=== PATIENT | male | born 1990 | race Two or more races ===

== ENCOUNTER 2017-07-28 06:55 | Inpatient (IN) | payer OTHER ==
[2017-07-28] VITALS (17 sets, daily range): BP systolic 121–156; BP diastolic 77–102
[~2017-07-28] VITALS: Ht 170.2 cm; Wt 72.6 kg
[~2017-07-28 06:55] MED LIST: Acetaminophen (Non formulary) 100 ML IV ONE; Atropine Inj 1mg/10ml Syr IV PRN; DiphenhydrAMINE 50mg/ml Inj IVP PRN; HYDROcodone/Acetamin 7.5/325 tab ORAL PRN; Hydromorphone 0.5mg/0.5ml inj IVP PRN; Ketorolac 30mg Inj IV PRN; Ketorolac 60mg Inj IV PRN; LORazepam Inj 2mg/ml 1ml IV PRN; LR 1000ml 1,000 ML IVLG SCH; Labetalol 5mg/ml 20ml vial IV PRN; Midazolam 2mg/2ml Inj IVP PRN; Norco 5mg/325mg tab ORAL PRN; fentaNYL 100 mcg/2 mL IV PRN; oxyCODONE HCL/Acetaminophen 5/325mg ORAL PRN
[2017-07-28] MEDS ORDERED: Thrombin 5000 units TOPIC ONE (06:58)
[2017-07-28] MEDS ORDERED: Vancomycin 1gm inj IVPB ONE (06:58)
[2017-07-28] MEDS ORDERED: Lidocaine 1% Plain 30 ml INJ ONE ×2 (06:58→08:30)
[2017-07-28] MEDS ORDERED: Bupivacaine 0.5% Inj 30 ml vial INJ ONE (06:59)
[2017-07-28] MEDS ORDERED: Bacitracin 50000 Units Vial ONE (06:59)
[2017-07-28] MEDS ORDERED: Dexamethasone 20mg/5ml IVP ONE (07:00)
[2017-07-28] MEDS ORDERED: Heparin 5000 units/ml inj ONE (07:00)
[2017-07-28] MEDS ORDERED: ceFAZolin sod 1 GM in D5W 55 ML IVPB ONE (07:00)
[2017-07-28] MEDS ORDERED: Dexamethasone 20mg/5ml ONE (07:28)
[2017-07-28] MEDS ORDERED: Surgicel 4in x 8in TOPIC ONE (07:40)
[2017-07-28] MEDS ORDERED: Lidocaine 1% 10mg/ml/EPI 0.01mg/ml 50ml INJ ONE (07:41)
[2017-07-28] MEDS ORDERED: Ropivacaine 5mg/ml Vial 30ml INJ ONE (07:41)
[2017-07-28] MEDS ORDERED: MULTIVITAMINS1 EA14 PO (07:43)
[2017-07-28] MEDS ORDERED: Glycopyrrolate 0.2mg/ml 1ml Vial ONE (08:30)
[2017-07-28] MEDS ORDERED: fentaNYL 100 mcg/2 mL IV ONE (08:30)
[2017-07-28] MEDS ORDERED: Propofol 1,000mg/ 100ml btl IV ONE (08:30)
[2017-07-28] MEDS ORDERED: NS Irrig 1000ml ONE (08:30)
[2017-07-28] MEDS ORDERED: Sodium Chloride 10ml vial INJ ONE (08:30)
[2017-07-28] MEDS ORDERED: Sterile Water Irrig 1000ml IRRIG ONE (08:30)
[2017-07-28] MEDS ORDERED: Lidocaine 1% MPF 10mg/ml 5ml ONE (08:30)
[2017-07-28] MEDS ORDERED: Neostigmine 1mg/ml 10ml Inj ONE (08:30)
[2017-07-28] MEDS ORDERED: LR 1000ml ONE (08:30)
[2017-07-28] MEDS ORDERED: Ketamine 500mg Inj ONE (08:30)
[2017-07-28] MEDS ORDERED: Zemuron 50mg/5ml Inj IV ONE (08:30)
--- NOTE | 2017-07-28 08:35 | Pre-Procedure Note/Attestation ---
Pre-Procedure Note/Attestation Complete Prior to Procedure Planned Procedure: not applicable Procedure Narrative: ALIF L5-S1 Posterior Pedicle Screw L5-S1 Indications for Procedure Pre-Operative Diagnosis: Psotrauma symptomatic L5 spondylolysis, L5-S1 spondylolisthesis Attestation I attest that I discussed the nature of the procedure; its benefits; risks and complications; and alternatives (and the risks and benefits of such alternatives ), prior to the procedure, with the patient (or the patient's legal housing management representative). I attest that, if there was a reasonable possibility of needing a blood transfusion, the patient (or the patient's legal housing management representative) was given the [place] Department [employer] [facility] standardized written summary, pursuant to the [place]ie [place] Blood Safety Act ([place] Health and Safety Code # 1645, as amended). I attest that I re-evaluated the patient just prior to the surgery and that there has been no change in the patient's H&P, except as documented below: VANI DENG Jul 28, 2017 08:35
--- NOTE | 2017-07-28 09:19 | Anethesia Preoperative Eval ---
Anesthesia Pre-op PMH/ROS General Date of Evaluation: Jul 28, 2017 Time of Evaluation: 08:26 Anesthesiologist: Nupur ASA Score: ASA 1 Mallampati Score Class I : Soft palate, uvula, fauces, pillars visible Class II: Soft palate, uvula, fauces visible Class III: Soft palate, base of uvula visible Class IV: Only hard plate visible Mallampati Classification: Class I Surgeon: Stephanie Narayanan Diagnosis: Back Pain Surgical Procedure: ALIF L5-S1, PSF L5-S1 Anesthesia History: none Family History: no anesthesia problems Allergies: Coded Allergies: No Known Allergies (Unverified , 07/28/17) Medications: see eMAR Anesthesia Pre-op Phys. Exam Physician Exam Last Vital Signs Date Time Temp Pulse Resp B/P (MAP) Pulse Ox O2 Delivery O2 Flow Rate FiO2 07/28/17 07:21 97.7 63 18 121/78 100 Room Air Constitutional: NAD Neurologic: CN 2-12 intact Cardiovascular: RRR Respiratory: CTA Gastrointestinal: S/NT/ND Airway Exam Mallampati Score: Class I MO: full ROM: full Teeth: intact Anesthesia Pre-op A/P Risk Assessment & Plan Assessment: ASA 1 Plan: GA, BIS, GlideScope Status Change Before Surgery: No Pre-Antibiotics Dru Grams Ancef IV Given Within 1 Hr of Incision: Yes Time Given: 08:46 Khoi Espitia MD Jul 28, 2017 09:19
--- NOTE | 2017-07-28 09:21 | Immediate Post-Op Evaluation ---
Immediate Post-Op Evalulation Immediate Post-Op Evalulation Procedure: ALIF L5-S1, PSF L5-S1 Date of Evaluation: Jul 28, 2017 Time of Evaluation: 13:08 IV Fluids: 1000 LR Blood Products: 0 Estimated Blood Loss: 50 Urinary Output: 300 Blood Pressure Systolic: 127 Blood Pressure Diastolic: 87 Pulse Rate: 101 Respiratory Rate: 16 O2 Sat by Pulse Oximetry: 100 Temperature (Fahrenheit): 97.3 Pain Score (1-10): 2 Nausea: No Vomiting: No Complications 0 Patient Status: awake, reacts, patent, extubated, none Hydration Status: adequate Dru Grams Ancef IV Given Within 1 Hr of Incision: Yes Time Given: 08:46 Khoi Espitia MD Jul 28, 2017 09:21
[2017-07-28] MEDS ORDERED: LORazepam 0.5mg tab ORAL PRN (09:45)
[2017-07-28] MEDS ORDERED: Naloxone 0.4mg/ml Inj IVP PRN (11:45)
--- NOTE | 2017-07-28 12:32 | Brief Operative Note ---
Immediate Post Operative Note Operative Note Pre-op Diagnosis: Psotrauma symptomatic L5 spondylolysis, L5-S1 spondylolisthesis Procedure: L5-S1 correction deformity, fusion, internal fixation, bio4 placement, ssep, high power, xray posterior ssep, xray, internal fixation pedicle scrwe L5, S1, local Post-op Diagnosis: same as pre-op Surgeon: Oracio Deng Hair Weaver: Camelia BENAVIDES Anesthesiologist: Nupur Anesthesia: general Specimen: none Complications: none Condition: stable Fluids: minimal Estimated Blood Loss: minimal Drains: none Implant(s) used?: Yes VANI DENG Jul 28, 2017 12:32
[2017-07-28] MEDS ORDERED: Meperidine 50mg/ml Inj(FOR RIGORS ONLY) IVP ONE (13:30)
[2017-07-28] MEDS: PCA HYDROmorphone 1mg/ml 30 ML IV PRN (13:40)
--- NOTE | 2017-07-28 14:34 | Diagnostic Imaging Report ---
Indication: Right leg pain, intraoperative Technique: Intraoperative images Comparison: none Findings: Initial localizer image demonstrates a needle BX of the anterior aspect of the L5-S1 disc. Subsequent images demonstrate anterior and posterior fusion of L5 and S1. Impression: Intraoperative images, as described
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
--- NOTE | 2017-07-28 16:00 | Operative Note - Dictated ---
DATE OF OPERATION: 07/28/2017 VASCULAR SURGEON: Joel Narayanan M.D. SPINE SURGEON: Ariel Brown M.D. PREOPERATIVE DIAGNOSIS: Degenerative disc disease. POSTOPERATIVE DIAGNOSIS: Degenerative disc disease. PROCEDURE PERFORMED: Anterior retroperitoneal exposure of L5-S1 vertebral interspace. INDICATIONS: The patient is a very pleasant young man, who is seen in my office prior to surgery. He has been scheduled for anterior fusion L5-S1. He has no prior anterior abdominal surgery. No history of deep venous thrombosis or bleeding complications. He has been made aware of the risks of surgery, possibly vascular injury, possible need for blood transfusion, deep venous thrombosis, as well as a very low risk of retrograde ejaculation were all discussed prior to surgery. He understands these risks and does wish to proceed. DESCRIPTION OF FINDINGS: A low vertical midline incision was used. A left retroperitoneal approach was used. There is no peritoneal or ureteral violation. There is no vascular injury. Blood loss was less than 50 mL. The patient had palpable femoral pedal pulse on completion. DESCRIPTION OF PROCEDURE: The patient was seen in the operating room. General anesthesia was used. Intravenous antibiotics were given. The patient's abdomen was prepped and draped. Appropriate time-out for procedures were taken. A low vertical midline incision was made. Anterior fascia was incised longitudinally in the midline. A plane was then identified posterior to the left rectus abdominis developed posterolaterally towards the patient's left. The retroperitoneal space was bluntly entered below the arcuate line. The peritoneum and ureter were mobilized together towards the patient's right exposing the left common iliac artery and vein. Dissection was carried on the undersurface of the left common iliac vein and the middle sacral artery and vein were identified and ligated using bipolar electrocautery and divided. The omni retractor was placed, and used to mobilize the left iliac vessels superiorly and laterally and we then dissected the soft tissue out the anterior surface of L5- S1. Minimal use of electrocautery was used on this disc place to decrease injury to the hypogastric nerve plexus. The Omni retractor was set in place. Fluoroscopy was then used to confirm the appropriate level. Then instrumentation was performed on the L5-S1 dictated separately. On completion, the retractor was gently removed. The peritoneum and ureter were intact. The iliac vessels are intact. Anterior fascia was then closed using #1 PDS in a running fashion. Skin and subcutaneous tissue were closed with 3-0 Vicryl and 4-0 Monocryl in a running subcuticular closure technique. Estimated blood loss was less than 50 mL. Complications were none. Joel Narayanan M.D. DR: RYAN JOB#: [id number] CC: Pati Chaves M.D. ; FAX#: [phone] [facility]
[2017-07-28] MEDS: D5 1/2NS 1,000 ML IV SCH (16:37)
[2017-07-28] MEDS: ceFAZolin sod 1 GM in NS 55 ML IV SCH (16:37)
[2017-07-28] MEDS: Dronabinol 2.5mg Cap ORAL SCH (17:15)
--- NOTE | 2017-07-28 19:01 | Operative Note - Dictated ---
DATE OF OPERATION: 07/28/2017 SURGEON: Ariel Brown, Ph. D., M.D. ANTERIOR VASCULAR SURGEON: Dr. Narayanan. POSTERIOR ASSIST: KENNEDY Staples. ANESTHESIA: Dr. Espitia, general with intubation. ESTIMATED BLOOD LOSS: Minimal. COMPLICATIONS: None. POSTOPERATIVE CONDITION: Good/stable. PREOPERATIVE DIAGNOSIS: Posttraumatic severe back pain with spondylolysis/spondylolisthesis, L5-S1. POSTOPERATIVE DIAGNOSIS: Posttraumatic severe back pain with spondylolysis/spondylolisthesis, L5-S1. OPERATIVE PROCEDURE: Anterior interbody reconstruction, L5-S1 with correction deformity, application osteopromotive material L5-S1, internal fixation, SSEP monitoring, high-powered dissection, and intraoperative fluoroscopy interpreted by surgeons. Posterior pedicle screw instrumentation, L5-S1, high-power dissection, SSEP monitoring, intraoperative fluoroscopy interpreted by surgeons, and local anesthetic applied by surgeon. DESCRIPTION OF PROCEDURE: The patient was brought to the operating room in the supine position. General anesthesia intubation was induced. Intravenous antibiotics, intravenous Decadron were administered 30 minutes prior to incision time. Anterior exposure through a sterile field placed the dermis and epidermis. Please see separate report of Dr. Narayanan. L5-S1 interspace was identified in midline and lateral planes with markers in place after the confirmation. Position recorded. Markers removed. Annulotomy performed followed with diskectomy to the posterior longitudinal ligament without penetration. SSEP monitoring stable. Denuding of the endplates to bleeding bone. Interpositional grafting with an Aero-L with the appropriate lordotic with correction of deformity containing osteopromotive material fusion with internal fixation. Closure please see Dr. Narayanan note. After closure, the patient was carefully turned to the prone position onto a new operating table. All prior instruments that were used for the anterior approach were removed from the room and all new instruments were brought in. The patient appropriately positioned, Lumbodorsal spine, sterilely prepped. Spinal needles placed into the subcutaneous tissue intervals only and a cross-table image obtained under sterile conditions demonstrating the correct levels for incision placement. Markers removed. Back was sterilely prepped and draped free in usual sterile fashion. A longitudinal incision over the appropriate intervals were sharply placed in the dermis and epidermis. Electrocautery dissection was carried through the subcutaneous tissue to the level lumbodorsal fascia was incised right and left of midline with exposure of the appropriate intervals. SSEP monitoring stable at all times. Pedicle screw instrumentation, bilateral L5 and bilateral S1 with sequential posterior cortical drilling with fluoroscopic guidance, probing of the pedicle, determination of length, tapping, physical determination of ball-tip probe with integrity of the pedicle screw hole myers with no EMG is noted by SSEP monitoring. Insertion of the screws followed with electrical stimulation negative. Interconnecting rods torqued into appropriate position. Excellent alignment. Fluoroscopic image obtained. Wound copiously irrigated with antibiotic-containing saline. A 1 gram vancomycin powder applied deep to the lumbodorsal fascia. Sequential reapproximation of the lumbodorsal fascia, subcutaneous tissue, dermis, and epidermis followed with surgical strips and Dermabond. Sterile bandage applied and maintained in place. The patient carefully turned from the prone to the supine position on the transport bed where he was awakened and extubated in the operating room, and transported to postoperative recovery in good stable condition. Ariel Brown M.D. DR: SIDDHARTHA JOB#: [id number] CC:
[2017-07-28] MEDS: PCA shift volume MISC SCH (20:00)
[2017-07-28] MEDS ORDERED: PCA Education Pamphlet MISC ONE (21:00)
[2017-07-29] VITALS: BP 119/61
[2017-07-29] MEDS: ceFAZolin sod 1 GM in NS 55 ML IV SCH ×2 (00:12→08:29)
[2017-07-29] MEDS: D5 1/2NS 1,000 ML IV SCH ×3 (00:17→16:57)
[2017-07-29 04:28] VITALS: BP 108/70
[2017-07-29] MEDS: Dronabinol 2.5mg Cap ORAL SCH ×2 (05:31→16:42)
[2017-07-29] MEDS: PCA shift volume MISC SCH ×2 (07:11→19:00)
[2017-07-29 08:00] VITALS: BP 105/63
[2017-07-29] MEDS: Docusate 100mg cap ORAL SCH ×2 (08:29→16:42)
--- NOTE | 2017-07-29 09:04 | 48 Hour Post Anesthesia Eval ---
Post Anesthesia Evaluation Procedure: ALIF L5-S1, PSF L5-S1 Date of Evaluation: Jul 29, 2017 Time of Evaluation: 09:03 Blood Pressure Systolic: 110 0: 72 Pulse Rate: 74 Respiratory Rate: 20 Temperature (Fahrenheit): 97.8 O2 Sat by Pulse Oximetry: 98 Airway: patent Nausea: No Vomiting: No Pain Intensity: 3 Hydration Status: adequate Cardiopulmonary Status: stable Mental Status/LOC: patient returned to baseline Follow-up Care/Observations: n/a Post-Anesthesia Complications: none Follow-up care needed: N/A ZULEMA HURT M.D. Jul 29, 2017 09:04
[2017-07-29 12:00] VITALS: BP 118/82
[2017-07-29 16:00] VITALS: BP 109/70
[2017-07-29] MEDS: PCA HYDROmorphone 1mg/ml 30 ML IV PRN (19:28)
[2017-07-29] MEDS: HYDROmorphone 1mg/ml Carpuject SUBQ PRN (20:14)
--- NOTE | 2017-07-29 20:30 | Progress Note ---
DATE: 07/29/2017 ACUTE PAIN MANAGEMENT PHYSICIAN PROGRESS NOTE MEDICATIONS: Medication administration record reviewed. Medications include Phenergan, Protonix, Narcan, Ativan, Dilaudid, [place], Marinol, Colace, Benadryl, Cepacol, Soma and Mylanta. LABORATORY STUDIES: No interval laboratory studies. Vital signs within normal limits, afebrile, pulse 84, respirations 18, blood pressure 118/82, and oxygen saturation 98%. I spent over 60 minutes in consultation today. I saw the patient at bedside with his girlfriend and the nurse RN, Bolivar. I discussed the case with the surgeon, Dr. Brown, who ordered to remove the patient's Branch catheter, on the patient's request. We are still awaiting the patient to void urine. With his young age of 26, there should be no problems later this afternoon. The patient denies any shortness of breath or chest pain. The patient does have bowel sounds, but has not yet passed positive flatus after his TLIF procedure. Therefore, the patient will continue on NPO except for ice chips and medications, better pentecostalism of bowel function. So that we can advance his diet. Incentive spirometer has been placed at the bedside to encourage good pulmonary toilet. The patient's current analgesic regimen seems adequate. The b.i.d. Marinol seems helpful for baseline analgesia. I would continue the LEAD APPLICATIONS DEVELOPER unit for now. Once the patient's diet is advanced. I would then recommend to titrate in, Soma and hydrocodone pills, so we can wean off the LEAD APPLICATIONS DEVELOPER unit. The patient states that he already received a prescription for [place] by Dr. Brown. The patient will contact his brother at his home in [place] to drop-off the prescription at a local pharmacy to expedite dispensing. Physical therapy has been working with the patient well and the patient already has been out of bed three times a day. We will continue aggressive ambulation, which also will help with DVT prophylaxis as well as return of bowel function. Overall, the patient is progressing very well after his extensive lumbar spine instrumentation procedure. We will continue supportive care for now. Gopal Ngo M.D. DR: LORA JOB#: [id number] CC:
[2017-07-29 20:31] VITALS: BP 121/72
[2017-07-30 00:38] VITALS: BP 109/63
[2017-07-30 04:00] VITALS: BP 105/57
[2017-07-30] MEDS: Dronabinol 2.5mg Cap ORAL SCH ×2 (05:06→21:35)
[2017-07-30] MEDS: D5 1/2NS 1,000 ML IV SCH ×2 (07:28)
[2017-07-30] MEDS: Docusate 100mg cap ORAL SCH ×2 (09:18→18:05)
[2017-07-30 11:43] VITALS: BP 100/59
[2017-07-30] MEDS: HYDROmorphone 1mg/ml Carpuject SUBQ PRN ×2 (13:20→17:40)
--- NOTE | 2017-07-30 14:15 | Progress Note ---
DATE: 07/30/2017 ACUTE PAIN MANAGEMENT PHYSICIAN PROGRESS NOTE OBJECTIVE: VITAL SIGNS: Afebrile, pulse 94, respirations 18, blood pressure 105/60, and pulse oximetry 98% on room air. LABORATORY STUDIES: No interval laboratory studies. MEDICATIONS: Medication administration record review medications include, IV fluids, Dilaudid PATIENT CASE COORDINATOR, Colace, Protonix, and Marinol. P.r.n. medications include Cepacol, Benadryl, subcutaneous Dilaudid, Mylanta, Narcan, Zofran, Soma, Phenergan, [place], and Ativan. I spent over 60 minutes in consultation today. I saw the patient at the bedside with the nurse RN, Bolivar, and discussed the case with the surgeon, Dr. Ariel Brown. The patient did start passing positive flatus overnight and we will contact the surgeon to determine if I can advance the patient's diet after his anterior lumbar interbody fusion procedure, ALIF. The patient is hungry and denies any nausea symptoms. The patient denies any shortness of breath or chest pain. The patient is neurologically intact. He is ambulating well in the hallways. He has good social support at the bedside with his brother. I will order an incentive spirometer to encourage good pulmonary toilet. Last night, the patient did receive subcutaneous Dilaudid with good effect. At this point, 48 hours after surgery, I will trial him off of the PATIENT CASE COORDINATOR unit. We will continue with the p.r.n. doses of Ativan, Soma, subcutaneous Dilaudid, and oral [place] for analgesia. I did remind the nursing team to wait at least 60 minutes between any doses of medications. I also spoke with the pharmacist to clarify these orders. The patient's father dropped off the prescription for [place] for outpatient usage at an outpatient pharmacy. We will continue supportive care and his IV fluids for now. Once the patient's diet is advanced, we will trial to Hep-Lock his IV fluids and then await a bowel movement prior to hospital discharge. I will again order an incentive spirometer to the bedside to encourage good pulmonary toilet. Gopal Ngo M.D. DR: MAURY JOB#: [id number] CC:
[2017-07-30 16:00] VITALS: BP 113/83
[2017-07-30 20:28] VITALS: BP 112/75
[2017-07-31 00:09] VITALS: BP 109/69
[2017-07-31] MEDS: HYDROcodone/Acetamin 10/325 tab ORAL PRN ×3 (04:32→21:18)
[2017-07-31 04:51] VITALS: BP 119/70
[2017-07-31] MEDS: Docusate 100mg cap ORAL SCH ×2 (08:49→17:46)
[2017-07-31] MEDS: Dronabinol 2.5mg Cap ORAL SCH ×2 (08:49→21:17)
[2017-07-31 09:00] VITALS: BP 118/73
[2017-07-31 11:57] VITALS: BP 123/73
[2017-07-31] MEDS ORDERED: D5 1/2NS 1000ml IV ONE (14:53)
[2017-07-31] MEDS ORDERED: Tubing IV Secondary IV ONE (14:53)
--- NOTE | 2017-07-31 15:15 | Progress Note ---
DATE: 07/31/2017 ACUTE PAIN MANAGEMENT PHYSICIAN PROGRESS NOTE OBJECTIVE: VITAL SIGNS: Afebrile, pulse 73, respirations 20, blood pressure 118/70, and pulse oximetry 100% on room air. LABORATORY STUDIES: No interval laboratory studies. MEDICATIONS: Medication administration record reviewed. Medications include Colace, Protonix, and Marinol. P.r.n. medications include Cepacol, Benadryl, Dilaudid, Mylanta, Narcan, Zofran, Soma, Phenergan, [place], and Ativan. I spent over 60 minutes in consultation today. I saw the patient at the bedside with his brother and father. I discussed the case with an overnight nurse RN, Viry along with the day nurse RN, Ebony. I also spoke with the surgeon, Dr. Brown. After the patient started passing positive flatus, he was advanced with his diet yesterday. He tolerated this well without any nausea symptoms. He had soft diet for dinner last night and this morning he is tolerating regular breakfast. He still has not yet had a bowel movement, and that is the limiting step, delaying the patient's discharge to home. We will continue the patient in the hospital until he demonstrates positive bowel movement to show evidence for scientology of gastrointestinal function after his ALIF surgical spine procedure, per the surgeon, Dr. Brown protocol. Otherwise, the patient is doing very well. He is breathing comfortably. He is ambulating well. He is doing well in his current analgesic regimen, which has been Marinol every 12 hours along with p.r.n. doses of subcutaneous Dilaudid and oral [place]. The patient has not required Soma in 48 hours. I will discontinue this medication to help supply his analgesic regimen. Additionally, he has not used Ativan or Phenergan, So I will also remove these medications to reduce the risk of medication administration errors. The patient has great social support at the bedside by extended family. The patient still is having difficulties with having a local pharmacy dispense his [place] prescription, prescribed by Dr. Brown last week. I will see if I can help improve this situation. Gopal Ngo M.D. DR: JANAE JOB#: [id number] CC:
[2017-07-31 15:54] VITALS: BP 120/75
[2017-07-31 20:00] VITALS: BP 124/69
[2017-07-31] MEDS ORDERED: NORCO 10-325 T1 EACH ORAL (21:00)
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
== END 2017-07-31 21:29 | disposition home or self-care (01) | DRG 460 ==
LOC: SDSOVERFLO 06:55 → 3E 14:45
PROC: 4A11X4G Monitoring of Peripheral Nervous Electrical Activity, Intraoperative, External Approach (ICD-10-PCS; principal; 2017-07-28 08:30)
PROC: 0SG Lower Joints, Fusion (ICD-10-PCS; principal; 2017-07-28 08:30)
PROC: 0SG30AJ Fusion of Lumbosacral Joint with Interbody Fusion Device, Posterior Approach, Anterior Column, Open Approach (ICD-10-PCS; principal; 2017-07-28 08:30)
PROC: 0ST40ZZ Resection of Lumbosacral Disc, Open Approach (ICD-10-PCS; principal; 2017-07-28 08:30)
DX: M43.17 Spondylolisthesis, lumbosacral region (principal); G89.18 Other acute postprocedural pain; M43.07 Spondylolysis, lumbosacral region; M51.37 Other intervertebral disc degeneration, lumbosacral region
CPT/HCPCS: 36415; 72020; 76001; 86850; 86900; 86901; 87081; 94003; 94150; J2405; J2710